=== PATIENT | male | born 1955 | race Caucasian/White ===

== ENCOUNTER 2020-07-13 08:09 | Emergency (ER) | payer OTHER, MEDICARE | END 2020-07-13 09:49 | disposition home or self-care (01) | LOC: FER 08:09 | CPT/HCPCS: 99282-25 ==

== ENCOUNTER 2020-07-14 18:16 | Emergency (ER) | payer OTHER, MEDICARE | END 2020-07-14 19:25 | disposition home or self-care (01) | LOC: FER 18:16 | DX: T83.9XXD Unspecified complication of genitourinary prosthetic device, implant and graft, subsequent encounter (principal) | CPT/HCPCS: 99283-25 ==

== ENCOUNTER 2020-07-15 20:24 | Emergency (ER) | payer OTHER, MEDICARE | END 2020-07-15 21:55 | disposition home or self-care (01) | LOC: FER 20:24 | DX: T83.9XXA Unspecified complication of genitourinary prosthetic device, implant and graft, initial encounter (principal) | CPT/HCPCS: 99281-25 ==

== ENCOUNTER 2024-02-18 18:53 | Inpatient (IN) | payer OTHER, MEDICARE ==
[2024-02-18 20:14] LABS: EPI CELLS 9 /uL (0-25.1); HYALINE CASTS 0 /uL (0-3.1); URINE APPEARANCE CLOUDY; URINE BACTERIA 6811 /uL (0-1359); URINE BILIRUBIN NEGATIVE (NEGATIVE); URINE COLOR YELLOW; URINE GLUCOSE (UA) 3+ (NEGATIVE); URINE KETONE NEGATIVE (NEGATIVE); URINE LEUK ESTERASE 3+ (NEGATIVE); URINE NITRITE NEGATIVE (NEGATIVE); URINE PROTEIN 1+ (NEGATIVE); URINE RBC 26 /uL (0-23.9); URINE UROBILINOGEN 0.2 mg/dL (0.2-1.0); URINE WBC 1393 /uL (0-25.8)
[2024-02-18 20:43] LABS: BASO % 0.2 % (0-2.0); HEMATOCRIT 35.8 % (35.4-49); HEMOGLOBIN 11.7 GM/dL (11.7-16.9); LYMPH % 3.9 % (8-40); MCHC 32.6 g/dl (32.0-35.9); MEAN CELL VOLUME 67.6 fl (80-96); MEAN PLT VOLUME 8.1 fl (7.5-11.1); MONO % 7.4 % (3.8-10.2); NEUT % 88.5 % (42.8-82.8); PLATELET COUNT 173 10^3/uL (134-434); RDW 18.6 % (11.9-15.9)
[2024-02-18] MEDS ORDERED: CEFTRIAXONE 1 GM/50 ML BAG ONE (20:43)
[2024-02-18 20:49] LABS: INR 1.56 (0.83-1.09); PROTHROMBIN TIME (PATIENT) 17.4 SEC (9.7-13.0)
[2024-02-18 20:52] LABS: ACTIVATED PTT 33.9 SECONDS (25.2-36.5)
[2024-02-18 20:56] LABS: POTASSIUM 3.9 mmol/L (3.5-5.1)
[2024-02-18 20:58] LABS: ALBUMIN 3.6 g/dl (3.4-5.0); BLOOD UREA NITROGEN 25.7 mg/dL (7-18); CALCIUM 8.6 mg/dL (8.5-10.1); MAGNESIUM 2.1 mg/dL (1.8-2.4)
[2024-02-18 21:01] LABS: CREATININE 1.2 mg/dL (0.55-1.3)
[2024-02-18 21:03] LABS: TOT PROT 7.1 g/dl (6.4-8.2)
[2024-02-18 21:22] LABS: ANISOCYTOSIS 3+; MACROCYTOSIS 0; OVALOCYTE 1+
[2024-02-18] MEDS: SODIUM CHLORIDE 0.9% 500 ML INFUS.BAG IV ONE (22:30)
[2024-02-18] MEDS ORDERED: metFORMIN HCL 500 MG TABLET (FP) ONE (23:28)
[2024-02-18] MEDS ORDERED: APIXABAN 5 MG TABLET ONE (23:28)
[2024-02-18] MEDS ORDERED: SENNOSIDES 8.6MG TABLET (FP) PO ONE (23:29)
[2024-02-18] MEDS: APIXABAN 5 MG TABLET PO ONE (23:51)
[2024-02-18] MEDS: SOTALOL HCL 80 MG TABLET (FP) PO ONE (23:51)
[2024-02-18] MEDS: metFORMIN HCL 500 MG TABLET (FP) PO ONE (23:51)
[2024-02-19 01:55] VITALS: BMI 32.3
[2024-02-19] MEDS: INSULIN ASPART SLIDING SCALE (NOVOLOG) 1 VIAL SQ SCH (07:10)
[2024-02-19 08:28] LABS: BASO % 0.4 % (0-2.0); HEMATOCRIT 34.5 % (35.4-49); HEMOGLOBIN 10.9 GM/dL (11.7-16.9); LYMPH % 4.9 % (8-40); MCH 21.9 pg (25.7-33.7); MCHC 31.6 g/dl (32.0-35.9); MEAN CELL VOLUME 69.3 fl (80-96); MEAN PLT VOLUME 7.6 fl (7.5-11.1); MONO % 8.2 % (3.8-10.2); NEUT % 86.5 % (42.8-82.8); PLATELET COUNT 159 10^3/uL (134-434); RBC 4.97 M/mm3 (4.00-5.60); RDW 18.5 % (11.9-15.9); WHITE BLOOD COUNT 15.1 K/mm3 (4.0-10.0)
[2024-02-19 08:53] LABS: POTASSIUM 3.6 mmol/L (3.5-5.1)
[2024-02-19 09:01] LABS: BLOOD UREA NITROGEN 23.5 mg/dL (7-18); CALCIUM 8.5 mg/dL (8.5-10.1)
[2024-02-19 09:02] LABS: ALBUMIN 3.2 g/dl (3.4-5.0); MAGNESIUM 2.1 mg/dL (1.8-2.4)
[2024-02-19 09:03] LABS: BILIRUBIN,TOTAL 0.7 mg/dL (0.2-1); TOT PROT 6.6 g/dl (6.4-8.2)
[2024-02-19 09:05] LABS: PHOSPHOROUS 3.7 mg/dL (2.5-4.9)
[2024-02-19] MEDS: RAMIPRIL 2.5 MG CAPSULE PO SCH (11:21)
[2024-02-19] MEDS: CLOPIDOGREL BISULFATE 75 MG TABLET (FP) PO SCH (11:22)
[2024-02-19] MEDS: SOTALOL HCL 80 MG TABLET (FP) PO SCH (11:22)
[2024-02-19] MEDS: FUROSEMIDE 40 MG TABLET (FP) PO SCH (11:22)
[2024-02-19] MEDS: APIXABAN 5 MG TABLET PO SCH (11:22)
[2024-02-19] MEDS: TAMSULOSIN HCL 0.4 MG CAP PO SCH (11:22)
[2024-02-19] MEDS: SOLIFENACIN SUCCINATE 5 MG TAB PO SCH (11:23)
[2024-02-19] MEDS: CHOLECALCIFEROL (VIT D3) 1,000 UNIT (25 MCG) TABLET PO SCH (11:23)
[2024-02-19] MEDS: metFORMIN HCL 500 MG TABLET (FP) PO SCH (18:37)
[2024-02-19] MEDS: SENNOSIDES 8.8 MG/5 ML SYRUP PO SCH (21:40)
[2024-02-19] MEDS: IRON SUCROSE INJECTION 200 MG in SODIUM CHLORIDE 100 ML IVPB ONE (21:40)
[2024-02-19] MEDS: ATORVASTATIN CA 20 MG TABLET (FP) PO SCH (21:41)
[2024-02-19] MEDS: SENNOSIDES 8.6MG TABLET (FP) PO SCH (21:41)
[2024-02-20] MEDS: GLIMEPIRIDE 4 MG TABLET PO SCH (06:30)
[2024-02-20] MEDS: metFORMIN HCL 500 MG TABLET (FP) PO SCH (06:30)
[2024-02-20 09:49] LABS: BASO % 0.2 % (0-2.0); EOS % 0.1 % (0-4.5); HEMOGLOBIN 10.6 GM/dL (11.7-16.9); MCH 22.3 pg (25.7-33.7); MCHC 32.2 g/dl (32.0-35.9); MEAN CELL VOLUME 69.2 fl (80-96); MEAN PLT VOLUME 8.4 fl (7.5-11.1); MONO % 9.8 % (3.8-10.2); NEUT % 82.9 % (42.8-82.8); RBC 4.77 M/mm3 (4.00-5.60); RDW 18.3 % (11.9-15.9); WHITE BLOOD COUNT 10.4 K/mm3 (4.0-10.0)
[2024-02-20 09:50] LABS: PLATELET COUNT 140 10^3/uL (134-434)
[2024-02-20 10:13] LABS: POTASSIUM 3.6 mmol/L (3.5-5.1)
[2024-02-20 10:24] LABS: BLOOD UREA NITROGEN 25.7 mg/dL (7-18); CALCIUM 8.8 mg/dL (8.5-10.1)
[2024-02-20 10:35] LABS: PLATELET ESTIMATE ADEQUATE
[2024-02-20] MEDS: CEFTRIAXONE 1 GM in DEXTROSE 5%-WATER - 50 ML IVPB SCH (11:30)
[2024-02-20] MEDS: IRON SUCROSE INJECTION 200 MG in SODIUM CHLORIDE 100 ML IVPB ONE (18:45)
[2024-02-20] MEDS: metFORMIN HCL 500 MG TABLET (FP) PO ONE (22:33)
[2024-02-21 01:57] VITALS: RESP 18
[2024-02-21 08:39] LABS: BASO % 0.4 % (0-2.0); EOS % 1.6 % (0-4.5); HEMATOCRIT 32.3 % (35.4-49); HEMOGLOBIN 10.4 GM/dL (11.7-16.9); MCH 22.3 pg (25.7-33.7); MCHC 32.2 g/dl (32.0-35.9); MEAN CELL VOLUME 69.3 fl (80-96); MEAN PLT VOLUME 8.2 fl (7.5-11.1); MONO % 10.7 % (3.8-10.2); NEUT % 79.3 % (42.8-82.8); PLATELET COUNT 129 10^3/uL (134-434); RBC 4.65 M/mm3 (4.00-5.60); RDW 18.5 % (11.9-15.9); WHITE BLOOD COUNT 7.3 K/mm3 (4.0-10.0)
[2024-02-21 09:32] LABS: BLOOD UREA NITROGEN 29.6 mg/dL (7-18); CALCIUM 8.7 mg/dL (8.5-10.1); POTASSIUM 3.3 mmol/L (3.5-5.1)
[2024-02-21 09:38] LABS: CREATININE 0.9 mg/dL (0.55-1.3)
[2024-02-21 10:12] VITALS: BP 130/73; PULSE 67; TEMP 97.5
[2024-02-23 16:07] LABS: THYROTROPIN RECPTOR AB SERUM < 1.10 IU/L (0.00-1.75)
== END 2024-02-21 15:32 | disposition home or self-care (01) | DRG 690 ==
LOC: JER 18:53 → JERBED 22:14 → J7W 02-19 01:37 → OBSVTOIN 02-19 09:19
PROVIDERS: ADMIT Internal Medicine; ATTEND Internal Medicine
DX: N39.0 Urinary tract infection, site not specified (principal); I50.32 Chronic diastolic (congestive) heart failure; I48.92 Unspecified atrial flutter; I48.0 Paroxysmal atrial fibrillation; I11.0 Hypertensive heart disease with heart failure; I25.10 Atherosclerotic heart disease of native coronary artery without angina pectoris; N40.0 Benign prostatic hyperplasia without lower urinary tract symptoms; E11.9 Type 2 diabetes mellitus without complications; B96.4 Proteus (mirabilis) (morganii) as the cause of diseases classified elsewhere; E78.5 Hyperlipidemia, unspecified; D50.9 Iron deficiency anemia, unspecified; E05.90 Thyrotoxicosis, unspecified without thyrotoxic crisis or storm; E66.9 Obesity, unspecified; Z68.32 Body mass index [BMI] 32.0-32.9, adult; Z88.0 Allergy status to penicillin; W18.30XA Fall on same level, unspecified, initial encounter; Z98.61 Coronary angioplasty status; Y92.099 Unspecified place in other non-institutional residence as the place of occurrence of the external cause; Y99.9 Unspecified external cause status; Z78.9 Other specified health status
CPT/HCPCS: 36415; 70450-TC; 71045-TC-FY; 72125-TC; 80048; 80053; 81003; 82465; 82550; 82728; 82962; 83520; 83540; 83550; 83605; 83718; 83721; 83735; 84100; 84439; 84443; 84478; 84480; 84484; 85025; 85610; 85730; 87040; 87081; 87086; 87186; 93005; 93010; 93306-TC; 93880-TC; 97116-GP; 97162-GP; 99285-25; G0378; J1756

== ENCOUNTER 2024-06-19 13:21 | Emergency (ER) | payer OTHER, MEDICARE ==
[2024-06-19 13:45] VITALS: PULSE 50; TEMP 97.7; BMI 30.9
[2024-06-19] MEDS ORDERED: predniSONE 20 MG TABLET (UD) ONE (14:38)
[2024-06-19] MEDS: predniSONE 20 MG TABLET (UD) PO ONE (15:26)
[2024-06-19 15:29] LABS: BASO % 0.4 % (0-2.0); EOS % 5.9 % (0-4.5); HEMATOCRIT 40.8 % (35.4-49); HEMOGLOBIN 13.2 GM/dL (11.7-16.9); LYMPH % 11.6 % (8-40); MCH 24.3 pg (25.7-33.7); MCHC 32.4 g/dl (32.0-35.9); MEAN CELL VOLUME 75.2 fl (80-96); MEAN PLT VOLUME 7.6 fl (7.5-11.1); MONO % 7.6 % (3.8-10.2); NEUT % 74.5 % (42.8-82.8); PLATELET COUNT 227 10^3/uL (134-434); RBC 5.43 M/mm3 (4.00-5.60); WHITE BLOOD COUNT 12.3 K/mm3 (4.0-10.0)
[2024-06-19 15:31] LABS: INR 1.33 (0.83-1.09); PROTHROMBIN TIME (PATIENT) 14.9 SEC (9.7-13.0)
[2024-06-19 15:33] LABS: ACTIVATED PTT 34.4 SECONDS (25.2-36.5)
[2024-06-19 15:51] LABS: POTASSIUM 4.9 mmol/L (3.5-5.1)
[2024-06-19 15:53] LABS: CALCIUM 9.4 mg/dL (8.5-10.1)
[2024-06-19 15:54] LABS: ALBUMIN 3.6 g/dl (3.4-5.0); BLOOD UREA NITROGEN 33.6 mg/dL (7-18)
[2024-06-19 15:57] LABS: CREATININE 1.2 mg/dL (0.55-1.3)
[2024-06-19 15:59] LABS: BILIRUBIN,TOTAL 0.7 mg/dL (0.2-1); TOT PROT 7.2 g/dl (6.4-8.2)
[2024-06-19 19:29] VITALS: BP 151/82; RESP 76
== END 2024-06-19 19:31 | disposition short-term general hospital (02) ==
LOC: JER 13:21
PROC: 3E033GC Introduction of Other Therapeutic Substance into Peripheral Vein, Percutaneous Approach (ICD-10-PCS; principal; 2024-06-19)
DX: R21 Rash and other nonspecific skin eruption (principal)
CPT/HCPCS: 36415; 80053; 83615; 85025; 85610; 85651; 85730; 86140; 99285-25; G0463-25